=== PATIENT | male | born 1955 | race Caucasian/White ===

== ENCOUNTER 2017-01-01 19:03 | Emergency (ER) | payer MEDICAID, OTHER ==
[~2017-01-01] VITALS: Ht 177.8 cm; Wt 90.9 kg
[~2017-01-01 19:03] MED LIST: AMIT50TA3 PO; BUPR-93 PO; DIVA500T52 PO; MUPI15CR12 TP; OMEP20 PO; QUET400T PO; SIMV-259 PO; VITAD1000 PO
[2017-01-01] MEDS ORDERED: LIDOCAINE HCL 1% 10 ML VIAL INJ ONE (20:30)
[2017-01-01] MEDS ORDERED: HYDROCODONE/ACETAMINOPHEN 5-325 MG TABLET PO ONE ×2 (21:45→22:15)
[2017-01-01 22:20] VITALS: BP 144/60
== END 2017-01-01 22:22 | disposition home or self-care (01) ==
LOC: EMS 19:10
DX: L73.2 Hidradenitis suppurativa (principal); I10 Essential (primary) hypertension; F17.210 Nicotine dependence, cigarettes, uncomplicated; Z88.0 Allergy status to penicillin; Z88.8 Allergy status to other drugs, medicaments and biological substances
CPT/HCPCS: 10060; 99283; J3490

== ENCOUNTER 2017-01-09 00:35 | Emergency (ER) | payer MEDICAID, OTHER ==
[~2017-01-09] VITALS: Ht 175.3 cm; Wt 104.5 kg
[~2017-01-09 00:35] MED LIST changes: -MUPI15CR12 TP; -SIMV-259 PO; +SULF1TAB42 PO
[2017-01-09 01:48] LABS: BASOPHILS % (AUTO) 0.2 % (0.0-2.0); EOSINOPHILS % (AUTO) 0.8 % (1.0-6.0); HEMATOCRIT 37.8 % (41-53); HEMOGLOBIN 13.1 g/dL (13.5-17.5); LYMPHOCYTES # (AUTO) 1.2 K/uL (1.0-4.8); LYMPHOCYTES % (AUTO) 8.1 % (22.0-44.0); MEAN CORPUSCULAR HEMOGLOBIN 32.1 pg (26.0-34.0); MEAN CORPUSCULAR HGB CONC 34.5 G/dL (31.0-37.0); MEAN CORPUSCULAR VOLUME 93 fL (80-100); MONOCYTES # (AUTO) 1.2 K/uL (0.1-1.0); MONOCYTES % (AUTO) 8.3 % (2.0-9.0); NEUTROPHILS # (AUTO) 11.8 K/uL (1.8-7.7); NEUTROPHILS % (AUTO) 82.6 % (40.0-70.0); PLATELET COUNT (AUTO) 305 K/uL (150-450); RED BLOOD CELL COUNT(AUTO) 4.06 MIL/uL (4.50-5.90); RED CELL DISTRIBUTION WIDTH 14.5 % (11.5-14.5); WHITE BLOOD COUNT (AUTO) 14.3 K/uL (4.5-11.0)
[2017-01-09 01:50] LABS: ANION GAP 10 mmol/L (8-16); CALCIUM, TOTAL 9.8 mg/dL (8.8-10.5); CARBON DIOXIDE 25 mmol/L (22-29); CHLORIDE 103 mmol/L (98-107); CREATININE 2.13 mg/dL (0.60-1.30); GLOMERULAR FILTR. RATE CALC 32 mL/min (>60); POTASSIUM 5.1 mmol/L (3.5-5.1); SODIUM SERUM 138 mmol/L (136-145); UREA NITROGEN, BLOOD 36 mg/dL (7-18)
[2017-01-09 01:56] LABS: ALANINE AMINOTRANSFERASE 33 U/L (12-78); ASPARTATE AMINOTRANSFERASE 15 U/L (15-37); BILIRUBIN,TOTAL 0.3 mg/dL (0.1-1.0); TOTAL PROTEIN, SERUM 7.9 g/dL (6.4-8.2); VALPROIC ACID 16 mcg/mL (50-100)
[2017-01-09] MEDS ORDERED: ACETAMINOPHEN 500 MG TABLET PO ONE (02:45)
[2017-01-09 02:51] VITALS: BP 145/82
== END 2017-01-09 03:21 | disposition home or self-care (01) ==
LOC: EMS 00:37
DX: F31.9 Bipolar disorder, unspecified (principal); R45.851 Suicidal ideations; F17.210 Nicotine dependence, cigarettes, uncomplicated; F20.9 Schizophrenia, unspecified; I10 Essential (primary) hypertension; R56.9 Unspecified convulsions; Z88.0 Allergy status to penicillin; Z88.8 Allergy status to other drugs, medicaments and biological substances; Z98.890 Other specified postprocedural states
CPT/HCPCS: 36415; 80053; 80164; 85025; 99284; 99406; G0480

== ENCOUNTER 2017-04-30 08:24 | Inpatient (IN) | payer MEDICAID, OTHER ==
[~2017-04-30] VITALS: Ht 175.3 cm; Wt 100.0 kg
[~2017-04-30 08:24] MED LIST changes: +FLUT1AER IH; +OMEG-12 PO; -OMEP20 PO; -SULF1TAB42 PO
[2017-04-30] MEDS ORDERED: ALBU8HFA IH (08:49)
[2017-04-30 09:30] LABS: BASOPHILS # (AUTO) 0.08 K/uL (0.00-0.20); BASOPHILS % (AUTO) 0.5 % (0.0-2.0); EOSINOPHILS # (AUTO) 0.17 K/uL (0.00-0.70); EOSINOPHILS % (AUTO) 0.95 % (1.0-6.0); HEMATOCRIT 37.8 % (41-53); HEMOGLOBIN 12.4 g/dL (13.5-17.5); LYMPHOCYTES # (AUTO) 1.3 K/uL (1.0-4.8); LYMPHOCYTES % (AUTO) 7.4 % (22.0-44.0); MEAN CORPUSCULAR HEMOGLOBIN 31.6 pg (26.0-34.0); MEAN CORPUSCULAR HGB CONC 32.7 G/dL (31.0-37.0); MEAN CORPUSCULAR VOLUME 97 fL (80-100); MONOCYTES # (AUTO) 1.4 K/uL (0.1-1.0); MONOCYTES % (AUTO) 7.6 % (2.0-9.0); NEUTROPHILS # (AUTO) 15.1 K/uL (1.8-7.7); NEUTROPHILS % (AUTO) 83.6 % (40.0-70.0); PLATELET COUNT (AUTO) 269 K/uL (150-450); RED BLOOD CELL COUNT(AUTO) 3.92 MIL/uL (4.50-5.90); RED CELL DISTRIBUTION WIDTH 15.5 % (11.5-14.5)
[2017-04-30 09:32] LABS: CALCIUM, TOTAL 8.7 mg/dL (8.8-10.5); CREATININE 1.94 mg/dL (0.60-1.30); POTASSIUM 4.4 mmol/L (3.5-5.1)
[2017-04-30 09:38] LABS: ALBUMIN 3.6 g/dL (3.4-5.0); BILIRUBIN,TOTAL 0.5 mg/dL (0.1-1.0); TOTAL PROTEIN, SERUM 6.7 g/dL (6.4-8.2)
[2017-04-30] MEDS ORDERED: SODIUM CHLORIDE 0.9% 1,000 ML IV ONE ×2 (10:45→16:00)
[2017-04-30] MEDS ORDERED: DIVALPROEX SODIUM 500 MG DR TABLET PO ONE (11:00)
[2017-04-30 11:33] LABS: GLUCOSE,POINT OF CARE 118 MG/DL (70-110)
[2017-04-30] MEDS ORDERED: MORPHINE SULFATE 4 MG/ML SYRINGE IVP ONE (12:30)
[2017-04-30] MEDS ORDERED: CIPROFLOXACIN 400 MG/D5% WATER 200 ML IV ONE (14:30)
[2017-04-30] MEDS ORDERED: ONDANSETRON HCL 4 MG/2 ML VIAL IVP PRN (16:00)
[2017-04-30] MEDS ORDERED: ACETAMINOPHEN 325 MG TABLET PO PRN (16:00)
[2017-04-30] MEDS ORDERED: HYDROmorphone 2 MG/ML SYRINGE IVP PRN (16:00)
[2017-04-30] MEDS ORDERED: 0.9% SODIUM CHLORIDE 10 ML SYRINGE IVP PRN (16:00)
[2017-04-30] MEDS ORDERED: -PHARMACY VACCINE NOTE- MISC ONE (19:15)
[2017-04-30] MEDS ORDERED: INFLUENZA VIRUS VACCINE QVS 2017-18 (3YR+)/PF 60 MCG/0.5 ML SYRINGE IM ONE (19:15)
[2017-04-30 19:58] VITALS: BP 121/70
[2017-04-30] MEDS ORDERED: ALBUTEROL SULFATE HFA 90 MCG/PUFF 8 GM INHALER IH PRN (22:15)
[2017-04-30] MEDS ORDERED: HYDROCODONE/ACETAMINOPHEN 5-325 MG TABLET PO PRN (22:15)
[2017-04-30] MEDS: LORazepam 1 MG TABLET PO PRN (22:55)
[2017-04-30] MEDS ORDERED: DIVALPROEX SODIUM 500 MG ER TABLET PO SCH (23:15)
[2017-05-01] VITALS (7 sets, daily range): BP systolic 93–154; BP diastolic 59–96
[2017-05-01] MEDS: AMITRIPTYLINE HCL 50 MG TABLET PO SCH ×2 (00:08→20:44)
[2017-05-01] MEDS: QUEtiapine FUMARATE 200 MG TABLET PO SCH ×2 (00:08→21:20)
[2017-05-01] MEDS: MetroNIDAZOLE 500 MG/NACL 100 ML IV SCH ×3 (00:10→16:21)
[2017-05-01] MEDS: HEPARIN SODIUM,PORCINE 5,000 UNITS/ML VIAL SQ SCH ×3 (00:42→16:21)
[2017-05-01] MEDS: LEVOFLOXACIN 500 MG/D5% WATER 100 ML IV SCH (01:57)
[2017-05-01] MEDS: FLUTICASONE/VILANTEROL 100-25 MCG/INH INHALER [14] IH SCH (09:44)
[2017-05-01] MEDS: FAMOTIDINE 20 MG TABLET PO SCH (09:45)
[2017-05-01] MEDS: CHOLECALCIFEROL (VIT D3) 1,000 UNITS TABLET PO SCH (09:45)
[2017-05-01] MEDS: OMEGA-3/DHA/EPA/FISH OIL 500 MG CAPSULE PO SCH (09:45)
[2017-05-01] MEDS: BuPROPion HCL XL 150 MG ER TABLET PO SCH (09:46)
[2017-05-01] MEDS ORDERED: SODIUM CHLORIDE 0.9% 250 ML IV ONE (09:56)
[2017-05-01] MEDS ORDERED: BARIUM SULFATE 0.1% SUSPENSION 450 ML BOTTLE ONE (11:00)
[2017-05-01 13:07] LABS: BASOPHILS # (AUTO) 0.01 K/uL (0.00-0.20); BASOPHILS % (AUTO) 0.2 % (0.0-2.0); EOSINOPHILS # (AUTO) 0.47 K/uL (0.00-0.70); EOSINOPHILS % (AUTO) 5.73 % (1.0-6.0); HEMATOCRIT 33.8 % (41-53); LYMPHOCYTES # (AUTO) 1.8 K/uL (1.0-4.8); LYMPHOCYTES % (AUTO) 21.8 % (22.0-44.0); MEAN CORPUSCULAR HEMOGLOBIN 31.5 pg (26.0-34.0); MEAN CORPUSCULAR HGB CONC 32.6 G/dL (31.0-37.0); MEAN CORPUSCULAR VOLUME 97 fL (80-100); MONOCYTES # (AUTO) 0.6 K/uL (0.1-1.0); NEUTROPHILS # (AUTO) 5.4 K/uL (1.8-7.7); NEUTROPHILS % (AUTO) 65.4 % (40.0-70.0); PLATELET COUNT (AUTO) 238 K/uL (150-450); RED CELL DISTRIBUTION WIDTH 15.8 % (11.5-14.5)
[2017-05-01] MEDS ORDERED: SODIUM CHLORIDE 0.45% 1,000 ML IV SCH (13:30)
[2017-05-01] MEDS ORDERED: LORazepam 2 MG/ML VIAL IVP PRN (13:30)
[2017-05-01 13:36] LABS: ALANINE AMINOTRANSFERASE 14 U/L (12-78); ALKALINE PHOSPHATASE 79 U/L (46-116); ANION GAP 9 mmol/L (8-16); ASPARTATE AMINOTRANSFERASE 10 U/L (15-37); BILIRUBIN,TOTAL 0.2 mg/dL (0.1-1.0); CALCIUM, TOTAL 8.2 mg/dL (8.8-10.5); CARBON DIOXIDE 26 mmol/L (22-29); CHLORIDE 105 mmol/L (98-107); CREATININE 1.17 mg/dL (0.60-1.30); GLOMERULAR FILTR. RATE CALC > 60 mL/min (>60); GLUCOSE,RANDOM 114 mg/dL (70-110); LIPASE 73 U/L (73-393); PHOSPHORUS 2.9 mg/dL (2.5-4.9); POTASSIUM 4.1 mmol/L (3.5-5.1); SODIUM SERUM 140 mmol/L (136-145); TOTAL PROTEIN, SERUM 6.2 g/dL (6.4-8.2); UREA NITROGEN, BLOOD 12 mg/dL (7-18)
[2017-05-01] MEDS: MORPHINE SULFATE 2 MG/ML SYRINGE IVP PRN ×2 (14:19→19:43)
[2017-05-01] MEDS: LORazepam 1 MG TABLET PO PRN (20:43)
[2017-05-01] MEDS ORDERED: DIVALPROEX SODIUM 250 MG ER TABLET PO SCH (21:00)
[2017-05-01] MEDS ORDERED: SODIUM CHLORIDE 0.9% 500 ML IV ONE (23:40)
[2017-05-02 00:18] VITALS: BP 148/87
[2017-05-02] MEDS: HEPARIN SODIUM,PORCINE 5,000 UNITS/ML VIAL SQ SCH ×2 (00:50→09:00)
[2017-05-02] MEDS: MetroNIDAZOLE 500 MG/NACL 100 ML IV SCH ×2 (00:50→08:59)
[2017-05-02] MEDS: LEVOFLOXACIN 500 MG/D5% WATER 100 ML IV SCH (01:52)
[2017-05-02 04:57] VITALS: BP 147/93
[2017-05-02 07:15] LABS: BASOPHILS # (AUTO) 0.03 K/uL (0.00-0.20); BASOPHILS % (AUTO) 0.3 % (0.0-2.0); EOSINOPHILS # (AUTO) 0.48 K/uL (0.00-0.70); EOSINOPHILS % (AUTO) 5.83 % (1.0-6.0); HEMATOCRIT 33.6 % (41-53); LYMPHOCYTES # (AUTO) 1.9 K/uL (1.0-4.8); MEAN CORPUSCULAR HEMOGLOBIN 31.8 pg (26.0-34.0); MEAN CORPUSCULAR HGB CONC 32.8 G/dL (31.0-37.0); MEAN CORPUSCULAR VOLUME 97 fL (80-100); MONOCYTES # (AUTO) 0.7 K/uL (0.1-1.0); MONOCYTES % (AUTO) 7.9 % (2.0-9.0); NEUTROPHILS # (AUTO) 5.2 K/uL (1.8-7.7); PLATELET COUNT (AUTO) 209 K/uL (150-450); RED BLOOD CELL COUNT(AUTO) 3.47 MIL/uL (4.50-5.90); RED CELL DISTRIBUTION WIDTH 15.6 % (11.5-14.5)
[2017-05-02 07:38] LABS: ALANINE AMINOTRANSFERASE 16 U/L (12-78); ALBUMIN 2.8 g/dL (3.4-5.0); ALKALINE PHOSPHATASE 71 U/L (46-116); ANION GAP 7 mmol/L (8-16); ASPARTATE AMINOTRANSFERASE 13 U/L (15-37); BILIRUBIN,TOTAL 0.2 mg/dL (0.1-1.0); CALCIUM, TOTAL 8.4 mg/dL (8.8-10.5); CARBON DIOXIDE 27 mmol/L (22-29); CHLORIDE 106 mmol/L (98-107); CREATININE 1.13 mg/dL (0.60-1.30); GLOMERULAR FILTR. RATE CALC > 60 mL/min (>60); GLUCOSE,RANDOM 82 mg/dL (70-110); PHOSPHORUS 3.5 mg/dL (2.5-4.9); POTASSIUM 4.6 mmol/L (3.5-5.1); SODIUM SERUM 140 mmol/L (136-145); TOTAL PROTEIN, SERUM 5.7 g/dL (6.4-8.2); UREA NITROGEN, BLOOD 12 mg/dL (7-18)
[2017-05-02 07:41] LABS: BILIRUBIN,DIRECT < 0.05 mg/dL (0.00-0.20)
[2017-05-02] MEDS: FLUTICASONE/VILANTEROL 100-25 MCG/INH INHALER [14] IH SCH (09:00)
[2017-05-02] MEDS: OMEGA-3/DHA/EPA/FISH OIL 500 MG CAPSULE PO SCH (09:00)
[2017-05-02] MEDS: CHOLECALCIFEROL (VIT D3) 1,000 UNITS TABLET PO SCH (09:00)
[2017-05-02] MEDS: FAMOTIDINE 20 MG TABLET PO SCH (09:00)
[2017-05-02] MEDS: BuPROPion HCL XL 150 MG ER TABLET PO SCH (09:01)
[2017-05-02 09:05] VITALS: BP 162/96
[2017-05-02] MEDS: LORazepam 1 MG TABLET PO PRN ×2 (09:09→13:25)
[2017-05-02] MEDS ORDERED: INFLUENZA VIRUS VACCINE QVS 2017-18 (3YR+)/PF 60 MCG/0.5 ML SYRINGE IM ONE (11:00)
[2017-05-02] MEDS ORDERED: LORA1TAB3 PO (15:02)
[2017-05-02 15:21] VITALS: BP 153/91
== END 2017-05-02 16:05 | disposition home or self-care (01) | DRG 720 ==
LOC: EMS 08:27 → 4E 16:04 → 6N 05-01 21:30
PROVIDERS: ADMIT Hospitalist; ATTEND Hospitalist
DX: A41.9 Sepsis, unspecified organism (principal); N17.0 Acute kidney failure with tubular necrosis; A08.4 Viral intestinal infection, unspecified; R45.851 Suicidal ideations; E86.0 Dehydration; G40.909 Epilepsy, unspecified, not intractable, without status epilepticus; H54.61 Unqualified visual loss, right eye, normal vision left eye; F17.210 Nicotine dependence, cigarettes, uncomplicated; I10 Essential (primary) hypertension; F32.9 Major depressive disorder, single episode, unspecified; E66.9 Obesity, unspecified; J44.9 Chronic obstructive pulmonary disease, unspecified; F25.0 Schizoaffective disorder, bipolar type; F10.20 Alcohol dependence, uncomplicated; Z53.29 Procedure and treatment not carried out because of patient's decision for other reasons; Z79.899 Other long term (current) drug therapy; Z88.0 Allergy status to penicillin; Z88.8 Allergy status to other drugs, medicaments and biological substances; Z91.5 Personal history of self-harm; Z68.32 Body mass index [BMI] 32.0-32.9, adult
CPT/HCPCS: 70450; 73502; 74176; 82962; 83605; 83735; 84100; 85651; 86140; 87040; 87045; 89055; 93005; 96361; 96365; 96374; 99285; G0480; J0744; J1170; J1644; J1956; J2270; J3490; J7030; J7040; J7050

== ENCOUNTER 2017-05-10 01:05 | Inpatient (IN) | payer OTHER ==
[~2017-05-10] VITALS: Ht 175.3 cm; Wt 108.6 kg
[~2017-05-10 01:05] MED LIST changes: +ALBU8HFA IH; +LORA1TAB3 PO
[2017-05-10] MEDS ORDERED: CYCL10 PO (01:26)
[2017-05-10] MEDS ORDERED: GABA-531 PO (01:26)
[2017-05-10] MEDS ORDERED: NAPR-58 PO (01:26)
[2017-05-10] MEDS ORDERED: LISI-662 PO (01:26)
[2017-05-10] MEDS ORDERED: SODIUM CHLORIDE 0.9% 1,000 ML IV ONE (01:30)
[2017-05-10 01:51] LABS: BASOPHILS # (AUTO) 0.03 K/uL (0.00-0.20); BASOPHILS % (AUTO) 0.3 % (0.0-2.0); EOSINOPHILS # (AUTO) 0.19 K/uL (0.00-0.70); EOSINOPHILS % (AUTO) 1.52 % (1.0-6.0); HEMATOCRIT 31.4 % (41-53); HEMOGLOBIN 10.4 g/dL (13.5-17.5); LYMPHOCYTES # (AUTO) 1.7 K/uL (1.0-4.8); LYMPHOCYTES % (AUTO) 13.6 % (22.0-44.0); MEAN CORPUSCULAR HEMOGLOBIN 31.9 pg (26.0-34.0); MEAN CORPUSCULAR HGB CONC 33.3 G/dL (31.0-37.0); MEAN CORPUSCULAR VOLUME 96 fL (80-100); MONOCYTES # (AUTO) 1.1 K/uL (0.1-1.0); MONOCYTES % (AUTO) 8.4 % (2.0-9.0); NEUTROPHILS # (AUTO) 9.7 K/uL (1.8-7.7); NEUTROPHILS % (AUTO) 76.3 % (40.0-70.0); PLATELET COUNT (AUTO) 276 K/uL (150-450); RED BLOOD CELL COUNT(AUTO) 3.27 MIL/uL (4.50-5.90); RED CELL DISTRIBUTION WIDTH 15.8 % (11.5-14.5); WHITE BLOOD COUNT (AUTO) 12.7 K/uL (4.5-11.0)
[2017-05-10 02:05] LABS: ANION GAP 9 mmol/L (8-16); CALCIUM, TOTAL 8.1 mg/dL (8.8-10.5); CARBON DIOXIDE 25 mmol/L (22-29); CHLORIDE 103 mmol/L (98-107); CREATININE 1.39 mg/dL (0.60-1.30); GLOMERULAR FILTR. RATE CALC 52 mL/min (>60); POTASSIUM 3.9 mmol/L (3.5-5.1); SODIUM SERUM 137 mmol/L (136-145); UREA NITROGEN, BLOOD 12 mg/dL (7-18)
[2017-05-10 02:09] LABS: ALANINE AMINOTRANSFERASE 26 U/L (12-78); ALBUMIN 2.9 g/dL (3.4-5.0); ASPARTATE AMINOTRANSFERASE 24 U/L (15-37); BILIRUBIN,TOTAL 0.2 mg/dL (0.1-1.0); TOTAL PROTEIN, SERUM 5.8 g/dL (6.4-8.2)
[2017-05-10] MEDS ORDERED: CefTRIAXone 1 GM/DEXTROSE 50 ML IV ONE (02:30)
[2017-05-10 03:47] VITALS: BP 127/72
[2017-05-10] MEDS ORDERED: SODIUM CHLORIDE 0.9% 500 ML IV ONE (06:10)
[2017-05-10] MEDS: MORPHINE SULFATE 2 MG/ML SYRINGE IVP PRN ×4 (06:49→16:48)
[2017-05-10] MEDS: SODIUM CHLORIDE 0.9% 1,000 ML IV SCH ×3 (06:49→22:30)
[2017-05-10 07:34] VITALS: BP 127/78
[2017-05-10] MEDS ORDERED: MAGNESIUM HYDROXIDE SUSPENSION 30 ML UDCUP PO PRN (10:00)
[2017-05-10] MEDS ORDERED: ONDANSETRON HCL 4 MG/2 ML VIAL IVP PRN (10:00)
[2017-05-10] MEDS ORDERED: ALBUTEROL SULFATE 2.5 MG/0.5 ML NEB SOLUTION NEB PRN (10:00)
[2017-05-10] MEDS ORDERED: ACETAMINOPHEN 325 MG TABLET PO PRN (10:00)
[2017-05-10] MEDS: LORazepam 2 MG TABLET PO PRN ×2 (10:11→18:57)
[2017-05-10] MEDS ORDERED: VANCOMYCIN HCL 1.5 GM in DEXTROSE 5%-WATER 250 ML IV ONE (11:00)
[2017-05-10 11:17] VITALS: BP 122/77
[2017-05-10 15:35] VITALS: BP 130/76
[2017-05-10] MEDS: HEPARIN SODIUM,PORCINE 5,000 UNITS/ML VIAL SQ SCH (16:21)
[2017-05-10] MEDS: DIVALPROEX SODIUM 500 MG DR TABLET PO SCH (20:44)
[2017-05-10] MEDS: VANCOMYCIN HCL 1.25 GM in DEXTROSE 5%-WATER 250 ML IV SCH (20:44)
[2017-05-10] MEDS: QUEtiapine FUMARATE 200 MG TABLET PO SCH (20:44)
[2017-05-10] MEDS: DOCUSATE SODIUM 100 MG CAPSULE PO SCH (20:44)
[2017-05-11] VITALS (7 sets, daily range): BP systolic 110–152; BP diastolic 68–83
[2017-05-11] MEDS: HEPARIN SODIUM,PORCINE 5,000 UNITS/ML VIAL SQ SCH ×4 (00:33→23:44)
[2017-05-11] MEDS: PANTOPRAZOLE SODIUM 40 MG DR TABLET PO SCH (08:55)
[2017-05-11] MEDS: QUEtiapine FUMARATE 200 MG TABLET PO SCH ×3 (08:55→21:03)
[2017-05-11] MEDS: LORazepam 2 MG TABLET PO PRN (08:55)
[2017-05-11] MEDS: BuPROPion HCL XL 150 MG ER TABLET PO SCH (08:55)
[2017-05-11] MEDS: DIVALPROEX SODIUM 500 MG DR TABLET PO SCH (08:55)
[2017-05-11] MEDS: ASPIRIN 81 MG CHEWABLE TABLET PO SCH (08:55)
[2017-05-11] MEDS: DOCUSATE SODIUM 100 MG CAPSULE PO SCH ×2 (08:55→21:03)
[2017-05-11] MEDS: VANCOMYCIN HCL 1.25 GM in DEXTROSE 5%-WATER 250 ML IV SCH (08:56)
[2017-05-11] MEDS: MORPHINE SULFATE 2 MG/ML SYRINGE IVP PRN ×2 (08:56→21:28)
[2017-05-11 10:52] LABS: BASOPHILS # (AUTO) 0.02 K/uL (0.00-0.20); BASOPHILS % (AUTO) 0.2 % (0.0-2.0); EOSINOPHILS # (AUTO) 0.31 K/uL (0.00-0.70); EOSINOPHILS % (AUTO) 2.76 % (1.0-6.0); HEMATOCRIT 32.6 % (41-53); HEMOGLOBIN 10.7 g/dL (13.5-17.5); LYMPHOCYTES # (AUTO) 1.5 K/uL (1.0-4.8); LYMPHOCYTES % (AUTO) 13.8 % (22.0-44.0); MEAN CORPUSCULAR HEMOGLOBIN 31.8 pg (26.0-34.0); MEAN CORPUSCULAR HGB CONC 32.9 G/dL (31.0-37.0); MEAN CORPUSCULAR VOLUME 96 fL (80-100); MONOCYTES # (AUTO) 0.7 K/uL (0.1-1.0); MONOCYTES % (AUTO) 6.2 % (2.0-9.0); NEUTROPHILS # (AUTO) 8.6 K/uL (1.8-7.7); NEUTROPHILS % (AUTO) 77.1 % (40.0-70.0); PLATELET COUNT (AUTO) 280 K/uL (150-450); RED BLOOD CELL COUNT(AUTO) 3.38 MIL/uL (4.50-5.90); RED CELL DISTRIBUTION WIDTH 15.4 % (11.5-14.5); WHITE BLOOD COUNT (AUTO) 11.2 K/uL (4.5-11.0)
[2017-05-11 10:54] LABS: ANION GAP 7 mmol/L (8-16); CALCIUM, TOTAL 8.3 mg/dL (8.8-10.5); CARBON DIOXIDE 26 mmol/L (22-29); CHLORIDE 103 mmol/L (98-107); CREATININE 1.05 mg/dL (0.60-1.30); GLOMERULAR FILTR. RATE CALC > 60 mL/min (>60); POTASSIUM 4.3 mmol/L (3.5-5.1); SODIUM SERUM 136 mmol/L (136-145); UREA NITROGEN, BLOOD 12 mg/dL (7-18)
[2017-05-11] MEDS: FLUoxetine HCL 20 MG CAPSULE PO SCH (16:04)
[2017-05-11] MEDS ORDERED: QUEtiapine FUMARATE 200 MG TABLET PO SCH (21:00)
[2017-05-11] MEDS: VANCOMYCIN HCL 1.5 GM in DEXTROSE 5%-WATER 250 ML IV SCH (21:03)
[2017-05-12 05:10] VITALS: BP 129/71
[2017-05-12 06:26] LABS: ANION GAP 7 mmol/L (8-16); CALCIUM, TOTAL 8.5 mg/dL (8.8-10.5); CARBON DIOXIDE 26 mmol/L (22-29); CHLORIDE 103 mmol/L (98-107); CREATININE 1.01 mg/dL (0.60-1.30); GLOMERULAR FILTR. RATE CALC > 60 mL/min (>60); POTASSIUM 4.1 mmol/L (3.5-5.1); SODIUM SERUM 136 mmol/L (136-145); UREA NITROGEN, BLOOD 13 mg/dL (7-18)
[2017-05-12 08:29] VITALS: BP 122/70
[2017-05-12] MEDS: BuPROPion HCL XL 150 MG ER TABLET PO SCH (08:43)
[2017-05-12] MEDS: QUEtiapine FUMARATE 200 MG TABLET PO SCH ×2 (08:43→20:48)
[2017-05-12] MEDS: DOCUSATE SODIUM 100 MG CAPSULE PO SCH ×2 (08:43→20:48)
[2017-05-12] MEDS: VANCOMYCIN HCL 1.5 GM in DEXTROSE 5%-WATER 250 ML IV SCH ×2 (08:43→20:48)
[2017-05-12] MEDS: HEPARIN SODIUM,PORCINE 5,000 UNITS/ML VIAL SQ SCH ×3 (08:44→23:58)
[2017-05-12] MEDS: FLUoxetine HCL 20 MG CAPSULE PO SCH (08:44)
[2017-05-12] MEDS: ASPIRIN 81 MG CHEWABLE TABLET PO SCH (08:44)
[2017-05-12] MEDS: PANTOPRAZOLE SODIUM 40 MG DR TABLET PO SCH (08:45)
[2017-05-12] MEDS: MORPHINE SULFATE 2 MG/ML SYRINGE IVP PRN (14:08)
[2017-05-12 15:10] VITALS: BP 137/79
[2017-05-12 19:56] VITALS: BP 115/55
[2017-05-12 23:55] VITALS: BP 93/55
[2017-05-13] MEDS: MORPHINE SULFATE 2 MG/ML SYRINGE IVP PRN ×3 (00:02→14:31)
[2017-05-13 04:16] VITALS: BP 125/70
[2017-05-13 06:04] LABS: BASOPHILS # (AUTO) 0.04 K/uL (0.00-0.20); BASOPHILS % (AUTO) 0.5 % (0.0-2.0); EOSINOPHILS # (AUTO) 0.38 K/uL (0.00-0.70); EOSINOPHILS % (AUTO) 4.45 % (1.0-6.0); HEMATOCRIT 33.1 % (41-53); HEMOGLOBIN 10.9 g/dL (13.5-17.5); LYMPHOCYTES # (AUTO) 1.8 K/uL (1.0-4.8); LYMPHOCYTES % (AUTO) 20.8 % (22.0-44.0); MEAN CORPUSCULAR HEMOGLOBIN 31.6 pg (26.0-34.0); MEAN CORPUSCULAR HGB CONC 32.9 G/dL (31.0-37.0); MEAN CORPUSCULAR VOLUME 96 fL (80-100); MONOCYTES # (AUTO) 0.7 K/uL (0.1-1.0); MONOCYTES % (AUTO) 7.9 % (2.0-9.0); NEUTROPHILS # (AUTO) 5.7 K/uL (1.8-7.7); NEUTROPHILS % (AUTO) 66.3 % (40.0-70.0); PLATELET COUNT (AUTO) 326 K/uL (150-450); RED BLOOD CELL COUNT(AUTO) 3.45 MIL/uL (4.50-5.90); RED CELL DISTRIBUTION WIDTH 15.5 % (11.5-14.5); WHITE BLOOD COUNT (AUTO) 8.6 K/uL (4.5-11.0)
[2017-05-13 06:13] LABS: ANION GAP 9 mmol/L (8-16); CALCIUM, TOTAL 8.9 mg/dL (8.8-10.5); CARBON DIOXIDE 27 mmol/L (22-29); CHLORIDE 103 mmol/L (98-107); CREATININE 1.09 mg/dL (0.60-1.30); GLOMERULAR FILTR. RATE CALC > 60 mL/min (>60); POTASSIUM 4.2 mmol/L (3.5-5.1); SODIUM SERUM 139 mmol/L (136-145); UREA NITROGEN, BLOOD 15 mg/dL (7-18)
[2017-05-13 07:33] VITALS: BP 112/65
[2017-05-13] MEDS: VANCOMYCIN HCL 1.5 GM in DEXTROSE 5%-WATER 250 ML IV SCH (07:49)
[2017-05-13] MEDS: HEPARIN SODIUM,PORCINE 5,000 UNITS/ML VIAL SQ SCH (07:50)
[2017-05-13] MEDS: DOCUSATE SODIUM 100 MG CAPSULE PO SCH (07:56)
[2017-05-13] MEDS: FLUoxetine HCL 20 MG CAPSULE PO SCH (07:58)
[2017-05-13] MEDS: PANTOPRAZOLE SODIUM 40 MG DR TABLET PO SCH (07:58)
[2017-05-13] MEDS: ASPIRIN 81 MG CHEWABLE TABLET PO SCH (07:59)
[2017-05-13] MEDS: QUEtiapine FUMARATE 200 MG TABLET PO SCH (07:59)
[2017-05-13] MEDS: BuPROPion HCL XL 150 MG ER TABLET PO SCH (08:02)
[2017-05-13 11:43] VITALS: BP 147/81
[2017-05-13] MEDS ORDERED: BACTDSB PO (13:42)
== END 2017-05-13 15:00 | disposition home or self-care (01) | DRG 383 ==
LOC: EMS 01:07 → 6N 02:37
PROVIDERS: ADMIT Internal Medicine; ATTEND Internal Medicine
DX: L03.115 Cellulitis of right lower limb (principal); N17.9 Acute kidney failure, unspecified; E44.0 Moderate protein-calorie malnutrition; R45.851 Suicidal ideations; B95.62 Methicillin resistant Staphylococcus aureus infection as the cause of diseases classified elsewhere; E66.9 Obesity, unspecified; F25.0 Schizoaffective disorder, bipolar type; F41.9 Anxiety disorder, unspecified; H54.61 Unqualified visual loss, right eye, normal vision left eye; I10 Essential (primary) hypertension; J44.9 Chronic obstructive pulmonary disease, unspecified; F17.210 Nicotine dependence, cigarettes, uncomplicated; F31.9 Bipolar disorder, unspecified; Z91.5 Personal history of self-harm; Z91.81 History of falling; Z68.35 Body mass index [BMI] 35.0-35.9, adult; Z91.19 Patient's noncompliance with other medical treatment and regimen; Z88.0 Allergy status to penicillin; Z88.8 Allergy status to other drugs, medicaments and biological substances
CPT/HCPCS: 87040; 87081; 93005; 96361; 96374; 99285; G0480; J0696; J1644; J2270; J3370; J7030; J7040; J7060